=== PATIENT | female | born 1985 | race Caucasian/White ===

== ENCOUNTER 2017-12-13 05:58 | Day surgery (SDC) | payer OTHER ==
[~2017-12-13] VITALS: Ht 160 cm; Wt 131.5 kg
[~2017-12-13 05:58] MED LIST: CYCL10 PO; IBUP800 PO; ONE A DAY MVI PO; Omeprazole20 M1 PO; PRENATAL VITAM1 EAC2 PO; SUCR1 PO; VITAMIN D-32000 UNIT PO
== END 2017-12-13 23:52 | disposition home or self-care (01) ==
LOC: ORSCMMR 05:58
PROVIDERS: Internal Medicine Gastroenterology
PROC: 0DB98ZX Excision of Duodenum, Via Natural or Artificial Opening Endoscopic, Diagnostic (ICD-10-PCS; principal; 2017-12-13 08:00)
PROC: 0DB68ZX Excision of Stomach, Via Natural or Artificial Opening Endoscopic, Diagnostic (ICD-10-PCS; principal; 2017-12-13 08:00)
DX: R10.9 Unspecified abdominal pain (principal); K21.9 Gastro-esophageal reflux disease without esophagitis; F17.210 Nicotine dependence, cigarettes, uncomplicated; E66.01 Morbid (severe) obesity due to excess calories; Z68.43 Body mass index [BMI] 50.0-59.9, adult; Z79.899 Other long term (current) drug therapy
CPT/HCPCS: 88305; 88342; J2250; J7120

== ENCOUNTER 2024-05-04 20:19 | Inpatient (IN) | payer OTHER ==
[~2024-05-04] VITALS: Ht 160 cm; Wt 133.6 kg
[~2024-05-04 20:19] MED LIST changes: +GLYB2.5 PO
[2024-05-04] MEDS ORDERED: Misoprostol 25 MCG Tab VAG PRN (20:25)
[2024-05-04] MEDS ORDERED: Lactated Ringer's 1,000 ML IV SCH ×3 (20:25→20:30)
[2024-05-04] MEDS ORDERED: ePHEDrine Sulfate 50 MG/ML 1ML Injection XX PRN (20:30)
[2024-05-04] MEDS ORDERED: Bupivacaine HCl 2.5 MG/ML 10ML P/F Injection XX SCH (20:30)
[2024-05-04] MEDS ORDERED: Misoprostol 200 MCG Tab PR SCH (20:30)
[2024-05-04] MEDS ORDERED: Lactated Ringer's 1,000 ML IV PRN (20:30)
[2024-05-04] MEDS ORDERED: Lidocaine HCl 1% 30 ML SDV XX SCH (20:30)
[2024-05-04] MEDS ORDERED: Bupivacaine 0.5% HCl 5 MG/ML 30MLVIAL XX SCH (20:30)
[2024-05-04] MEDS ORDERED: Castor Oil 59.146 ML BTL TOP SCH (20:30)
[2024-05-04] MEDS ORDERED: Methylergonovine Maleate 0.2MG / ML 1ML Amp IM SCH (20:30)
[2024-05-04] MEDS ORDERED: OXYTOCIN/RINGER'S LACTATE 500 ML IV SCH (20:30)
[2024-05-04] MEDS ORDERED: Oxytocin 10 Unit / ML Vial IM SCH (20:30)
[2024-05-04] MEDS ORDERED: FentaNYL 2mcg/ml-Bup 0.1% Epd 250 ML EPI PRN (20:30)
[2024-05-04] MEDS ORDERED: Acetaminophen 500 MG Tab PO PRN (20:35)
[2024-05-04] MEDS ORDERED: Ondansetron HCl 2 MG / ML 2ML Vial IV PRN (20:35)
[2024-05-04] MEDS ORDERED: Calcium Carbonate 500 MG Tab Chew PO PRN (20:35)
[2024-05-04] MEDS ORDERED: Zolpidem Tartrate 5 MG Tab PO PRN (20:35)
[2024-05-04] MEDS ORDERED: FentaNYL Citrate 50 MCG/ML 2 ML Injection IV PRN (20:35)
[2024-05-04] MEDS ORDERED: MetFORMIN HCl 500 mg PO SCH (21:00)
[2024-05-04] MEDS ORDERED: Insulin NPH 100 Unit / ML 10ML Vial SC SCH (21:06)
[2024-05-04 21:13] VITALS: BP 151/74
[2024-05-04 21:33] LABS: BASOPHILS ABSOLUTE AUTO 0.03 K/mm3 (0.00-0.23); BASOPHILS PERCENT AUTO 0 % (0-2); EOSINOPHILS ABSOLUTE AUTO 0.04 K/mm3 (0.00-0.68); EOSINOPHILS PERCENT AUTO 0 % (0-6); Hematocrit 33.8 % (33.0-51.0); IMMATURE GRAN ABSOLUTE AUTO 0.04 K/mm3 (0.00-0.10); IMMATURE GRAN PERCENT AUTO 0 % (0-1); LYMPHOCYTES ABSOLUTE AUTO 1.68 K/mm3 (0.84-5.20); LYMPHOCYTES PERCENT AUTO 16 % (21-46); MONOCYTES ABSOLUTE AUTO 0.48 K/mm3 (0.16-1.47); MONOCYTES PERCENT AUTO 4 % (4-13); Mean Corpuscular HGB 31.3 pg (26.0-34.0); Mean Corpuscular HGB Conc 35.5 g/dL (31.5-36.5); Mean Corpuscular Volume 88 fL (80-100); NEUTROPHILS ABSOLUTE AUTO 8.55 K/mm3 (1.96-9.15); NEUTROPHILS PERCENT AUTO 79 % (41-73); Platelet Count 192 K/mm3 (150-400); RDW Coefficient Variation 14.2 % (11.7-14.2); RDW Standard Deviation 45.2 fL (35.1-46.3); Red Blood Cell Count 3.84 M/mm3 (3.80-5.20); White Blood Cell Count 10.82 K/mm3 (4.00-11.30)
[2024-05-04 21:42] LABS: Albumin, Blood 2.6 g/dL (3.4-5.0); Albumin/Globulin Ratio 0.7 (0.8-1.8); Bilirubin, Total 0.2 mg/dL (0.1-1.0); Bun/Creatinine Ratio 24.6 (12.0-20.0); Calcium, Blood 8.8 mg/dL (8.5-10.1); Creatinine, Blood 0.61 mg/dL (0.40-1.00); Globulin, Blood 3.7 g/dL (2.2-4.0); Potassium, Blood 3.6 mmol/L (3.5-5.5); Total Protein, Blood 6.3 g/dL (6.4-8.2)
[2024-05-04] MEDS ORDERED: PRENATAL TABLE1 EAC2 PO (21:52)
[2024-05-04] MEDS ORDERED: DOXYLAMINE-PYR1 EAC1 PO (21:54)
[2024-05-04] MEDS ORDERED: METF500 PO (21:55)
[2024-05-04] MEDS ORDERED: SERT100 PO (21:56)
[2024-05-04 22:22] VITALS: BP 142/64
[2024-05-04] MEDS ORDERED: HUMULIN N100 UNIT/1 SC (22:31)
[2024-05-04 22:42] VITALS: BP 113/56
[2024-05-05] VITALS (43 sets, daily range): BP systolic 112–176; BP diastolic 53–129
[2024-05-05] MEDS ORDERED: Sertraline HCl 100 MG Tab PO SCH (09:00)
[2024-05-05] MEDS ORDERED: Omeprazole 20 MG CapCR PO SCH ×2 (09:25→21:00)
[2024-05-05] MEDS ORDERED: OXYTOCIN/RINGER'S LACTATE 500 ML IV ONE (12:39)
[2024-05-05] MEDS ORDERED: Lactated Ringer's 1,000 ML IV SCH ×2 (12:40→21:40)
[2024-05-05] MEDS ORDERED: OXYTOCIN/RINGER'S LACTATE 500 ML IV SCH ×2 (12:40→21:45)
[2024-05-05] MEDS ORDERED: Prenatal Vit/FE Fumarate/FA 1 Tab PO SCH (21:00)
[2024-05-05] MEDS ORDERED: Sertraline HCl 50 MG Tab PO ONE (21:00)
[2024-05-05] MEDS ORDERED: Ibuprofen 400 MG Tab PO PRN (21:35)
[2024-05-05] MEDS ORDERED: Witch Hazel/Glycerin PADS TOP PRN (21:35)
[2024-05-05] MEDS ORDERED: Diphth,Pertuss(Acell),Tet Vac 0.5 ML VIAL IM ONE (21:35)
[2024-05-05] MEDS ORDERED: Docusate Sodium 100 MG Cap PO PRN (21:35)
[2024-05-05] MEDS ORDERED: Misoprostol 200 MCG Tab PO PRN (21:40)
[2024-05-05] MEDS ORDERED: Lanolin Cream TOP PRN (21:40)
[2024-05-05] MEDS ORDERED: Carboprost Tromethamine 250 MCG/ML 1ML Amp IM PRN (21:40)
[2024-05-05] MEDS ORDERED: OxyCODONE 5 mg/Acetamin 325 mg TABLET PO PRN (21:40)
[2024-05-05] MEDS ORDERED: Benzocaine Topical Anesthetic Spray 60GM TOP PRN (21:45)
[2024-05-05] MEDS ORDERED: Ketorolac Tromethamine 30mg Vial IV ONE (22:00)
[2024-05-05] MEDS ORDERED: Ketorolac Tromethamine 30mg Vial IV PRN (22:00)
[2024-05-06 02:37] VITALS: BP 142/67
[2024-05-06 06:42] LABS: Hematocrit 33.5 % (33.0-51.0); Hemoglobin 11.6 g/dL (11.5-16.0); Mean Corpuscular HGB 31.3 pg (26.0-34.0); Mean Corpuscular HGB Conc 34.6 g/dL (31.5-36.5); Mean Corpuscular Volume 90 fL (80-100); Mean Platelet Volume 10.2 fL (9.1-12.4); Platelet Count 181 K/mm3 (150-400); RDW Coefficient Variation 14.2 % (11.7-14.2); RDW Standard Deviation 46.2 fL (35.1-46.3); Red Blood Cell Count 3.71 M/mm3 (3.80-5.20); White Blood Cell Count 12.53 K/mm3 (4.00-11.30)
[2024-05-06 07:12] LABS: Glucose, Blood 99 mg/dL (70-99)
[2024-05-06] MEDS ORDERED: Prenatal Vit/FE Fumarate/FA 1 Tab PO SCH (09:00)
[2024-05-06 10:33] VITALS: BP 150/82
[2024-05-06 12:41] VITALS: BP 124/56
[2024-05-06 17:20] VITALS: BP 147/70
[2024-05-06] MEDS ORDERED: IBUP800 PO (18:10)
[2024-05-06] MEDS ORDERED: Percocet 5-3251 EACH PO (18:10)
[2024-05-06 20:49] VITALS: BP 152/73
[2024-05-06] MEDS ORDERED: Sertraline HCl 100 MG Tab PO SCH (21:00)
== END 2024-05-06 21:50 | disposition home or self-care (01) | DRG 807 ==
LOC: OBS 20:19 → BC 20:32
PROVIDERS: ADMIT Advanced Practice Midwife
PROC: 10E0XZZ Delivery of Products of Conception, External Approach (ICD-10-PCS; principal; 2024-05-05)
PROC: 0U7C7ZZ Dilation of Cervix, Via Natural or Artificial Opening (ICD-10-PCS; 2024-05-05)
PROC: 10907ZC Drainage of Amniotic Fluid, Therapeutic from Products of Conception, Via Natural or Artificial Opening (ICD-10-PCS; 2024-05-05)
PROC: 3E0R3BZ Introduction of Anesthetic Agent into Spinal Canal, Percutaneous Approach (ICD-10-PCS; 2024-05-05)
PROC: 00HU33Z Insertion of Infusion Device into Spinal Canal, Percutaneous Approach (ICD-10-PCS; 2024-05-05)
DX: O24.424 Gestational diabetes mellitus in childbirth, insulin controlled (principal); Z37.0 Single live birth; O99.62 Diseases of the digestive system complicating childbirth; K21.9 Gastro-esophageal reflux disease without esophagitis; O14.94 Unspecified pre-eclampsia, complicating childbirth; Z3A.38 38 weeks gestation of pregnancy; Z91.018 Allergy to other foods; Z88.8 Allergy status to other drugs, medicaments and biological substances; Z79.84 Long term (current) use of oral hypoglycemic drugs; Z79.899 Other long term (current) drug therapy
CPT/HCPCS: 36415; 51702; 59200; 80053; 82947; 85025; 85027; A9270; J1815; J1885; J2590; J7120

== ENCOUNTER 2024-10-06 08:44 | Day surgery (SDC) | payer OTHER ==
[~2024-10-06] VITALS: Ht 160 cm; Wt 136.1 kg
[~2024-10-06 08:44] MED LIST changes: +DOXYLAMINE-PYR1 EAC1 PO; +HUMULIN N100 UNIT/1 SC; +METF500 PO; +PRENATAL TABLE1 EAC2 PO; +Percocet 5-3251 EACH PO; +SERT100 PO
[2024-10-06 10:00] VITALS: BP 134/94
[2024-10-06] MEDS ORDERED: NS 250 ML IV ONE (10:38)
[2024-10-06] MEDS ORDERED: Nitroglycerin 2 MG/20 ML BTL ONE (10:39)
[2024-10-06] MEDS ORDERED: Heparin Sodium 1000 Units/ML 10ML MDV ONE (10:39)
[2024-10-06] MEDS ORDERED: NS 1,000 ML IV ONE ×2 (10:39→10:47)
[2024-10-06] MEDS ORDERED: FentaNYL Citrate 50 MCG/ML 2 ML Injection ONE ×4 (10:47→13:12)
[2024-10-06] MEDS ORDERED: Midazolam HCl 1MG / ML 2ML Vial ONE ×4 (10:47→13:12)
[2024-10-06] MEDS ORDERED: SODIUM TETRADECYL SULFATE XX ONE (11:05)
[2024-10-06 13:57] VITALS: BP 144/123
--- NOTE | 2024-10-06 14:11 | NUR ---
PT BACK TO RECOVERY ROOM. PT USING PUMP AND SUPPLIES FROM FAMILY .
[2024-10-06 14:25] VITALS: BP 129/94
[2024-10-06 14:30] VITALS: BP 146/95
--- NOTE | 2024-10-06 14:30 | NUR ---
PT EATING LUNCH. NOTIFIED RIDE OF D/C TIME. R NECK SITE DRESSING CLEAN DRY INTACT. PT PUMPING.
[2024-10-06 14:45] VITALS: BP 135/79
--- NOTE | 2024-10-06 15:00 | NUR ---
PT VERBALIZE D/C INSTRUCTIONS. IV D/C CATHETER INTACT. 700 CC NS GIVEN. PT INSTRUCTED TO DRINK EXTRA WATER AND TO HOLD OFF X4 HOURS. PT DRESSED
--- NOTE | 2024-10-06 15:40 | NUR ---
PT WHEELED OUT OF DEPT. PT WAITING ON RIDE. D/C INSTRUCTIONS IN HAND.
== END 2024-10-06 15:15 | disposition home or self-care (01) ==
LOC: MHTC 08:44
DX: N94.89 Other specified conditions associated with female genital organs and menstrual cycle (principal); F17.210 Nicotine dependence, cigarettes, uncomplicated; Z88.8 Allergy status to other drugs, medicaments and biological substances
CPT/HCPCS: 36005; 37241; 75831; 76937; 99152; 99153; C1769; C1887; C1889; J1644; J2250; J3010; J7030; J7050; Q9967